=== PATIENT | male | born 1980 | race African-American/Black ===

== ENCOUNTER 2016-07-21 14:16 | Inpatient (IN) | payer OTHER ==
[~2016-07-21] VITALS: Ht 190.5 cm; Wt 120.7 kg
[2016-07-21] MEDS ORDERED: PANTOPRAZOLE 80 MG in SODIUM CHLORIDE 0.9% 50 ML IVPB ONE (14:26)
[2016-07-21] MEDS ORDERED: PANTOPRAZOLE 80 MG in SODIUM CHLORIDE 0.9% 100 ML IV SCH (14:54)
[2016-07-21] MEDS ORDERED: PLEASE ENTER ALLERGIES MC SCH ×2 (15:00)
[2016-07-21] MEDS ORDERED: PLEASE ENTER HEIGHT AND WEIGHT MC SCH (15:00)
[2016-07-21 15:04] LABS: ASPARTATE AMINO TRANSFERASE 16 U/L (15-37); BLOOD UREA NITROGEN 23 mg/dL (7-18)
[2016-07-21] MEDS ORDERED: ONDANSETRON 2MG/ML, 2ML IVP PRN (16:00)
[2016-07-21] MEDS ORDERED: BISACODYL 10 MG SUPP PR PRN (16:00)
[2016-07-21] MEDS ORDERED: MORPHINE SULFATE 4 MG/ML, 1ML IVPush PRN (16:00)
[2016-07-21] MEDS ORDERED: LABETALOL 5MG/ML, 20ML IV PRN (16:00)
[2016-07-21 16:36] VITALS: BP 118/72
[2016-07-21] MEDS ORDERED: MAGNESIUM SULFATE PMX 4GM/100M 100 ML IV ONE (17:30)
[2016-07-21] MEDS: SODIUM CHLORIDE 0.9% 1,000 ML IV SCH (18:36)
[2016-07-21 19:20] VITALS: BP 101/67
[2016-07-22] VITALS (15 sets, daily range): BP systolic 95–117; BP diastolic 56–79
[2016-07-22] MEDS: SODIUM CHLORIDE 0.9% 1,000 ML IV SCH ×3 (00:30→18:15)
[2016-07-22] MEDS: PANTOPRAZOLE 80 MG in SODIUM CHLORIDE 0.9% 100 ML IV SCH ×3 (02:43→21:30)
[2016-07-22 04:39] LABS: ASPARTATE AMINO TRANSFERASE 11 U/L (15-37); TOTAL IRON BINDING CAPACITY 222 mcg/dL (250-450)
[2016-07-22 04:46] LABS: BLOOD UREA NITROGEN 17 mg/dL (7-18)
[2016-07-22] MEDS ORDERED: PROPOFOL 10 MG/ML, 20ML ONE (12:53)
[2016-07-22] MEDS ORDERED: MEPERIDINE/PF 25MG/0.5ML IVPush PRN (13:30)
[2016-07-22] MEDS ORDERED: PROMETHAZINE 25 MG/ML, 1ML IV PRN (13:30)
[2016-07-22] MEDS ORDERED: ONDANSETRON 2MG/ML, 2ML IVPush PRN (13:30)
[2016-07-22] MEDS ORDERED: HYDROmorphone 1 MG/ML, 1ML IV PRN (13:30)
[2016-07-22] MEDS ORDERED: LABETALOL 5MG/ML, 20ML IV PRN (13:30)
[2016-07-22] MEDS ORDERED: FENTANYL PF 100 MCG/2ML IV PRN (13:30)
[2016-07-22] MEDS ORDERED: OXYcodone 5 MG/5 ML ORAL.SOL UDC PO PRN (13:30)
[2016-07-22] MEDS ORDERED: PANTOPROZOLE 40MG TABLET PO SCH (13:30)
[2016-07-22] MEDS ORDERED: MIDAZOLAM 1 MG/ML, 2ML IV PRN (13:30)
[2016-07-23 04:10] VITALS: BP_SYST 101; BP_SYST 117; BP_DIAS 62; BP_DIAS 71
[2016-07-23 05:00] LABS: BLOOD UREA NITROGEN 14 mg/dL (7-18)
[2016-07-23 07:31] VITALS: BP 107/62
[2016-07-23] MEDS ORDERED: PANTOPROZOLE 40MG TABLET PO SCH (08:00)
[2016-07-23 13:14] VITALS: BP 118/70
[2016-07-23] MEDS ORDERED: METR500T PO (14:08)
[2016-07-23] MEDS ORDERED: PANT40TA5 PO (14:08)
[2016-07-23] MEDS ORDERED: CLAR500T3 PO (14:08)
[2016-07-23] MEDS ORDERED: SODIUM CHLORIDE 0.9% 1,000 ML IV SCH (15:54)
== END 2016-07-23 16:40 | disposition home or self-care (01) | DRG 377 ==
LOC: ED 15:14 → EDIP 15:15 → ED 15:30 → 3NE 16:25
PROVIDERS: ADMIT Hospitalist; ATTEND Hospitalist
PROC: 30233N1 Transfusion of Nonautologous Red Blood Cells into Peripheral Vein, Percutaneous Approach (ICD-10-PCS; 2016-07-22)
PROC: 0DJ08ZZ Inspection of Upper Intestinal Tract, Via Natural or Artificial Opening Endoscopic (ICD-10-PCS; principal; 2016-07-22 13:00)
DX: K25.4 Chronic or unspecified gastric ulcer with hemorrhage (principal); N17.0 Acute kidney failure with tubular necrosis; E44.1 Mild protein-calorie malnutrition; D62 Acute posthemorrhagic anemia; K26.4 Chronic or unspecified duodenal ulcer with hemorrhage; K92.1 Melena; K25.9 Gastric ulcer, unspecified as acute or chronic, without hemorrhage or perforation; E55.9 Vitamin D deficiency, unspecified; F17.210 Nicotine dependence, cigarettes, uncomplicated; B96.81 Helicobacter pylori [H. pylori] as the cause of diseases classified elsewhere; D72.829 Elevated white blood cell count, unspecified; Z83.3 Family history of diabetes mellitus; Z88.0 Allergy status to penicillin; Z91.018 Allergy to other foods; Z68.33 Body mass index [BMI] 33.0-33.9, adult; E86.1 Hypovolemia; T39.395A Adverse effect of other nonsteroidal anti-inflammatory drugs [NSAID], initial encounter
CPT/HCPCS: 36415; 76770; 80048; 80053; 81003; 82728; 83540; 83550; 83605; 83735; 84100; 85014; 85018; 85025; 85610; 86677; 86850; 86900; 86923; 87040; 93005; 96365; J2704; C9113; J3475; J7030; P9016